=== PATIENT | male | born 1980 | race Caucasian/White ===

== ENCOUNTER 2025-02-05 13:40 | Emergency (ER) | payer OTHER, SELFPAY ==
[2025-02-05 13:46] VITALS: BP 140/104
--- NOTE | 2025-02-05 14:57 | ED.GENMED ---
History of Present Illness
General
Chief Complaint: Abdominal Symptoms
Source: patient
Exam Limitations: none
Time Seen by Provider: 02/05/25 14:27
History of Present Illness
History of Present Illness:
44-year-old male presents with epigastric and right upper quadrant abdominal pain worse over the past week. Tends to be worse at night. He typically will not eat breakfast but will eat lunch and dinner and admits to having around 5 glasses of wine
every night. The pain does not radiate to the back. No vomiting. He notes slight irregularity in his bowel movements denies any change in color. He tried Tums without significant relief.
Past History
Past History
ED Past Medical History: Other (cervical herniated discs)
ED Past Surgical History: None
Social History
Tobacco: Non-smoker
Alcohol: None
Drug: None
Living: with family
Phy Exam
Physical Exam
Physical Exam:
General: Well-appearing male no acute respiratory distress
HEENT: Normocephalic atraumatic
Heart: Regular rate and rhythm
Lungs: Clear no wheeze
Abdomen soft tender to the epigastric region and right upper quadrant. No guarding or rebound nondistended
Course
Orders/Labs/Results
Orders:
Orders
02/05/25 14:56
0.9% Sodium Chloride 1000 ml [Nss] 1,000 ml IV BOLUS
Famotidine [Pepcid] 20 mg IV NOW STA
US Abdomen Complete/Upper Urgent
Comment:
Reason For Exam: epigastric, ruq pain
02/05/25 15:05
Complete Blood Count/With Diff Urgent
Comprehensive Metabolic Panel Urgent
Lipase Urgent
02/05/25 16:22
CT Abd/pelvis W Iv Cont Urgent
Comment:
Reason For Exam: abdominal pain
Abnormal Lab Results
02/05/25
15:05
RBC 4.25 L 10^6/uL
(4.70-6.10)
MCV 98.4 H fL
(80.0-94.0)
MCH 34.1 H pg
(27.0-31.0)
MPV 10.7 H fL
(7.4-10.4)
Lymphocytes % 17.9 L %
(20.5-51.1)
BUN 8 L mg/dl
(9-20)
Creatinine 0.6 L mg/dL
(0.7-1.3)
Glucose 103 H mg/dl
(70-99)
ALT 56 H U/L
(0-50)
02/05/25 15:05
02/05/25 15:05
Vital Signs
Initial and Last Documented VS:
Initial Vital Signs
Temp Pulse Resp BP Pulse Ox
98.6 F 94 18 140/104 99
02/05/25 13:46 02/05/25 13:46 02/05/25 13:46 02/05/25 13:46 02/05/25 13:46
Last Documented Vital Signs
Temp Pulse Resp BP Pulse Ox
98.6 F 74 16 135/92 99
02/05/25 13:46 02/05/25 17:05 02/05/25 15:15 02/05/25 18:00 02/05/25 18:00
MDM/Problems Addressed
Differential Diagnosis Includes:
Abdominal pain. Consider gastritis versus ulcer versus biliary colic. Patient does drink about 5 glasses of wine daily. Also consider pancreatitis.
Check labs. Ultrasound ordered. Fluids ordered and Pepcid ordered
*Pulse Oximetry
SaO2: 99
Oxygen Mode of Delivery: Room air
Patient hypoxic: no
*Critical Care Note
Total Time (30-74mins, 75-104mins- exclusive of procedures): Not Applicable
Update Note
Update Note:
Workup shows sludge in the gallbladder but inflammation around the duodenum on the CT to suggest duodenitis. Patient does admit to 5 alcoholic beverages on a daily basis may contribute to his discomfort. Recommended PPIs and avoidance of alcohol
and GI follow-up. No indication for admission. Stable for discharge
ED Attending Note
-
Portions of this chart may have been created with voice recognition software.� Occasional wrong word or��sound alike� substitutions may have occurred due to the inherent limitations of voice recognition software.
Discharge Plan
Departure
Patient Disposition: Home (Routine Discharge)
Date of Disposition: 02/05/25
Time of Disposition: 18:36
Patient with high blood pressure during this ER visit?: No
Discharge Problem:
Duodenitis
Prescriptions:
No Action
lisinopril 10 mg Tablet
10 mg PO QPM
folic acid 1 mg Tablet
1 mg PO QPM
duloxetine 60 mg Capsule,Delayed Release(Dr/Ec)
60 mg PO QPM
omeprazole 20 mg Tablet,Delayed Release (Dr/Ec)
20 mg PO PRN PRN (Reason: GERD)
Referrals:
Karrie Aguirre PA-C [Family Provider]
Activity Restrictions/Additional Instructions:
Continue your omeprazole 40 mg daily. Avoid alcohol. Eat a bland diet. Return if worse otherwise follow-up with your doctor
Interventions
Interventions:
*Risk Screen - Suicide Last Done: 02/05/25 13:46
*General Assessment Last Done: 02/05/25 13:46
*Neglect/Abuse Screening Last Done: 02/05/25 15:41
*ED- Fall Risk Assessment Last Done: 02/05/25 15:52
*ED COVID-19 Vaccine History Last Done: 02/05/25 13:46
GG-Sjgilx-Mmfwpesyef Assessment Last Done: 02/05/25 14:47
Discharge Date and Time
Print Language: NORWEGI[place]
[2025-02-05] MEDS: PEPCID 20 MG IV (15:10)
[2025-02-05] MEDS: NSS 1000 IV (15:10)
[2025-02-05 15:13] VITALS: BP 129/81
[2025-02-05 15:15] VITALS: BP 129/81
[2025-02-05 15:22] LABS: Hematocrit 41.8 % (39.0-52.0); Hemoglobin 14.5 g/dL (13.0-18.0); Mean Corp Hgb Conc. 34.7 g/dL (33.0-37.0); Mean Corpuscular Volume 98.4 fL (80.0-94.0); Nucleated Red Blood Cells % 0 % (-); Platelet Count 186 10^3/uL (130-400); Red Cell Dist. Width 13.0 % (11.5-14.5)
[2025-02-05 15:36] LABS: ALT (SGPT) 56 U/L (0-50); AST (SGOT) 51 U/L (17-59); Albumin 4.6 g/dl (3.5-5.0); Alkaline Phosphatase 48 U/L (38-126); Blood Urea Nitrogen 8 mg/dl (9-20); Calcium 9.5 mg/dl (8.4-10.2); Carbon Dioxide 25 mmol/L (22-30); Chloride 105 mmol/L (98-107); Glucose 103 mg/dl (70-99); Lipase 133 U/L (23-300); Potassium 4.3 mmol/L (3.5-5.1); Sodium 135 mmol/L (135-145); Total Protein 7.1 g/dl (6.3-8.2); eGFR > 60.00
[2025-02-05 16:46] VITALS: BP 144/87
[2025-02-05 17:00] VITALS: BP 141/77
[2025-02-05 18:00] VITALS: BP 135/92
== END 2025-02-05 18:52 | disposition home or self-care (01) ==
LOC: EMR 13:40
PROVIDERS: Physician Assistant; EMERGENCY PHYSICIAN Emergency Medicine; FAMILY PHYSICIAN Physician Assistant
DX: K29.80 Duodenitis without bleeding (principal)
CPT/HCPCS: 99285; 96374; 74177; 76700; 80053; 83690; 85025; Q9967